=== PATIENT | female | born 1960 | race Caucasian/White ===

== ENCOUNTER 2017-02-08 15:18 | Emergency (ER) | payer OTHER, MEDICAID ==
[2017-02-08] MEDS: IPRATROPIUM/ALBUTEROL (0.5MG/3MG) NEB INH ONE (16:08)
[2017-02-08] MEDS: METHYLPREDNISOLONE PF 125MG/VIAL IM ONE (16:31)
--- NOTE | 2017-02-08 17:13 | Emergency Department Record ---
History of Present Illness - General Chief Complaint: Cough Stated Complaint: COUGH AND CONGESTION Time Seen by Provider: 02/08/17 15:48 Source: Patient Mode of Arrival: Wheelchair Limitations: No limitations - History of Present Illness Initial Comments: pt has had increasing sob and productive yellow cough today. her dr told her to come to er. she has a hx of copd. she has not had availability to her breathing treatments MD Complaint: Cough, Shortness of breath Onset/Timin -: Hour(s) Consistency: Constant Known History Of: COPD Associated Symptoms: Cough, Sputum production - Related Data Home Medications Medication Instructions Recorded Confirmed Last Taken Diltiazem HCl [Cartia Xt] 1 cap PO DAILY 05/15/14 02/08/17 02/08/17 Hydrocodone/Acetaminophen 1 tab PO ASDIR PRN 05/15/14 02/08/17 05/15/14 [Hydrocodon-Acetaminoph 7.5-325] Olmesartan/Hydrochlorothiazide 1 tab PO DAILY 05/15/14 02/08/17 02/08/17 [Benicar Hct 40-25 mg Tablet] Thyroid,Pork [Egan Thyroid] 1 tab PO DAILY 05/15/14 02/08/17 02/08/17 Cyclobenzaprine HCl [Flexeril] 10 mg PO TID PRN 08/14/14 02/08/17 Unknown Albuterol Sulfate 0.083% [Neb] 3 ml NEB .EVERY 4-6 HOURS PRN 02/08/17 02/08/17 Unknown Budesonide/Formoterol Fumarate 1 puff INH ASDIR 02/08/17 02/08/17 02/07/17 [Symbicort 160-4.5 Mcg Inhaler] Furosemide [Lasix] 20 mg PO DAILY 02/08/17 02/08/17 02/08/17 Hydrochlorothiazide [Hctz 12.5MG] 12.5 mg PO DAILY 02/08/17 02/08/17 02/08/17 Loratadine [Claritin] 10 mg PO DAILY 02/08/17 02/08/17 02/07/17 Tiotropium [place] [Spiriva] 1 cap IH DAILY 02/08/17 02/08/17 02/07/17 Previous Rx's Medication Instructions Recorded Ibuprofen [Motrin] 800 mg PO Q6HR PRN #30 tablet 05/15/14 Levofloxacin [Levaquin Tab] 500 mg PO DAILY #10 tab 02/08/17 Allergies Allergy/AdvReac Type Severity Reaction Status Date / Time codeine Allergy ITCHING Verified 02/08/17 15:38 erythromycin base Allergy DIFFICULTY Verified 02/08/17 15:38 [Erythromycin Base] BREATHING Penicillins Allergy DIFFICULTY Verified 02/08/17 15:38 BREATHING sulfamethoxazole Allergy HIVES Verified 02/08/17 15:38 [From Bactrim] tetanus and diphtheria Allergy MUSCLE PAIN Verified 02/08/17 15:38 toxoids [Tetanus&Diphtheria Toxoid] trimethoprim [From Bactrim] Allergy HIVES Verified 02/08/17 15:38 Travel Screening - Travel/Exposure Within Last 30 Days Have you traveled within the last 30 days?: No - Travel/Exposure Within Last Year Have you traveled outside the [place] in the last year?: No - Additonal Travel Details Have you been exposed to anyone with a communicable illness?: No - Travel Symptoms Symptom Screening: None Review of Systems Reviewed: No additional complaints except as noted below Constitutional: Reports: As per HPI. Denies: Chills, Fever, Malaise, Night sweats, Weakness, Weight change Eyes: Reports: As per HPI. Denies: Eye discharge, Eye pain, Photophobia, Vision change ENT: Reports: As per HPI. Denies: Congestion, Dental pain, Ear pain, Epistaxis , Hearing loss, Throat pain Respiratory: Reports: As per HPI. Denies: Cough, Dyspnea, Hemoptysis, Stridor, Wheezes Cardiovascular: Reports: As per HPI. Denies: Arrhythmia, Chest pain, Dyspnea on exertion, Edema, Murmurs, Orthopnea, Palpitations, Paroxysmal nocturnal dyspnea, Rheumatic Fever, Syncope Endocrine: Reports: As per HPI. Denies: Fatigue, Heat or cold intolerance, Polydipsia, Polyuria Gastrointestinal: Reports: As per HPI. Denies: Abdominal pain, Constipation, Diarrhea, Hematemesis, Hematochezia, Melena, Nausea, Vomiting Genitourinary: Reports: As per HPI. Denies: Abnormal menses, Discharge, Dyspareunia, Dysuria, Frequency, Hematuria, Incontinence, Retention, Urgency Musculoskeletal: Reports: As per HPI. Denies: Arthralgia, Back pain, Gout, Joint swelling, Myalgia, Neck pain Skin: Reports: As per HPI. Denies: Bruising, Change in color, Change in hair/ nails, Lesions, Pruritus, Rash Neurological: Reports: As per HPI. Denies: Abnormal gait, Confusion, Headache, Numbness, Paresthesias, Seizure, Tingling, Tremors, Vertigo, Weakness Psychiatric: Reports: As per HPI. Denies: Anxiety, Auditory hallucinations, Depression, Homicidal thoughts, Suicidal thoughts, Visual hallucinations Hematological/Lymphatic: Reports: As per HPI. Denies: Anemia, Blood Clots, Easy bleeding, Easy bruising, Swollen glands Past Medical History - SOCIAL HISTORY Smoking Status: Former smoker Alcohol Use: None Drug Use: None - RESPIRATORY Hx Respiratory Disorders: Yes Hx COPD: Yes Hx Sleep Apnea: Yes - CARDIOVASCULAR Hx Cardio Disorders: Yes Hx Hypertension: Yes - NEURO Hx Neuro Disorders: No - GI Hx GI Disorders: No - Hx Genitourinary Disorders: Yes Comment:: polycystic ovaries - ENDOCRINE Hx Endocrine Disorders: Yes Hx Thyroid Disease: Yes - MUSCULOSKELETAL Hx Musculoskeletal Disorders: Yes Hx Arthritis: Yes - PSYCH Hx Psych Problems: No - HEMATOLOGY/ONCOLOGY Hx Hematology/Oncology Disorders: Yes Hx Clotting Problems: Yes Family Medical History Any Significant Family History?: Yes Hx Cancer: Mother Hx Diabetes: Grandparents Hx Heart Disease: Father Hx Stroke: Grandparents Physical Exam - General General Appearance: Alert, Oriented x3, Cooperative, Mild distress - Head Head exam: Normal inspection - Eye Eye exam: Normal appearance, PERRL, EOMI Pupils: Normal accommodation - ENT ENT exam: Normal exam, Mucous membranes moist, Normal external ear exam, Normal orophraynx Ear exam: Normal external inspection. negative: External canal tenderness Nasal Exam: Normal inspection. negative: Discharge, Sinus tenderness Mouth exam: Normal external inspection, Tongue normal Teeth exam: Normal inspection. negative: Dental caries Throat exam: Normal inspection. negative: Tonsillar erythema, Tonsillar exudate - Neck Neck exam: Normal inspection, Full ROM. negative: Tenderness - Respiratory Respiratory exam: Normal lung sounds bilaterally. negative: Respiratory distress - Cardiovascular Cardiovascular Exam: Regular rate, Normal rhythm, Normal heart sounds - GI/Abdominal GI/Abdominal exam: Soft, Normal bowel sounds. negative: Tenderness - Rectal Rectal exam: Deferred - exam: Deferred - Extremities Extremities exam: Normal inspection, Full ROM, Normal capillary refill. negative: Tenderness - Back Back exam: Reports: Normal inspection, Full ROM. Denies: Muscle spasm, Rash noted, Tenderness - Neurological Neurological exam: Alert, CN II-XII intact, Normal gait, Oriented X3 - Psychiatric Psychiatric exam: Normal affect, Normal mood - Skin Skin exam: Dry, Intact, Normal color, Warm Course Vital Signs 02/08/17 02/08/17 15:46 16:09 Temperature 97.7 F Pulse Rate 79 76 Respiratory 20 16 Rate Blood Pressure 117/69 Pulse Ox 97 97 - Reevaluation(s) Reevaluation #1: 02/08/17 17:15 pt feels better Disposition Disposition: Discharge Clinical Impression: COPD (chronic obstructive pulmonary disease) with acute bronchitis Disposition: Home, Self-Care Condition: (1) Good Instructions: Acute Bronchitis (ED), Chronic Obstructive Pulmonary Disease (ED) Additional Instructions: follow up with family doctor. return sooner if worse. Prescriptions: Levofloxacin [Levaquin Tab] 500 mg PO DAILY #10 tab Forms: Patient Portal Access
== END 2017-02-08 17:32 | disposition home or self-care (01) ==
LOC: ER 15:18
DX: J44.9 Chronic obstructive pulmonary disease, unspecified (principal); R20.9 Unspecified disturbances of skin sensation; R06.02 Shortness of breath; Z87.891 Personal history of nicotine dependence; I10 Essential (primary) hypertension
CPT/HCPCS: 71020; 94640; 96372; 99283; 99284; J2930